=== PATIENT | female | born 1980 | race Caucasian/White ===

== ENCOUNTER 2024-04-13 18:19 | Emergency (ER) | payer BC, OTHER ==
[~2024-04-13] VITALS: Ht 154.9 cm; Wt 89.8 kg
[~2024-04-13 18:19] MED LIST: IBUP-44 PO
[2024-04-13 18:29] VITALS: BP 114/62; PULSE 103; RESP 20; TEMP 98.4; O2SAT 97
[2024-04-13 18:45] VITALS: TEMP 98.4
[2024-04-13 18:58] LABS: APPEARANCE,URINE CLEAR (CLEAR); BILIRUBIN,URINE NEGATIVE (NEGATIVE); BLOOD, URINE NEGATIVE (NEGATIVE); COLOR,URINE YELLOW (YELLOW); LEUKOCYTE ESTERASE ,URINE NEGATIVE (NEGATIVE); NITRITE, URINE NEGATIVE (NEGATIVE); PROTEIN,URINE NEGATIVE (NEGATIVE); UGLUCOSE NEGATIVE (NEGATIVE); UROBILINOGEN,URINE 0.2 EU/dL (0.2 - 1)
[2024-04-13] MEDS: KETOROLAC 30 MG/ML VIAL IVP ONE (18:59)
[2024-04-13] MEDS: ONDANSETRON 4 MG/2 ML VIAL IVP ONE (18:59)
[2024-04-13] MEDS: NACL 0.9% 1,000 ML IV SCH (19:00)
[2024-04-13 19:05] LABS: BASOPHILS # (AUTO) 0.1 K/uL (0.00-0.22); BASOPHILS % (AUTO) 0.5 % (0.0-2.0); EOSINOPHILS # (AUTO) 0.1 K/uL (0-0.4); EOSINOPHILS % (AUTO) 0.4 % (0.0-4.0); HEMATOCRIT 42.3 % (36-48); HEMOGLOBIN 14.2 g/dL (12.0-16.0); LYMPHOCYTES # (AUTO) 2.7 K/uL (2.5-16.5); LYMPHOCYTES % (AUTO) 17.1 % (20.5-51.1); MEAN CORPUSCULAR HEMOGLOBIN 29 pg (27-31); MEAN CORPUSCULAR HGB CONC 34 g/dL (33-37); MEAN CORPUSCULAR VOLUME 86.3 fL (80-94); MONOCYTES # (AUTO) 1.1 K/uL (0.8-1.0); MONOCYTES % (AUTO) 7.3 % (1.7-9.3); NEUTROPHILS # (AUTO) 11.6 K/uL (1.8-7.7); NEUTROPHILS % (AUTO) 74.7 % (42.2-75.2); PLATELET COUNT (AUTO) 247 K/uL (140-450); RED CELL DISTRIBUTION WIDTH 14.1 % (11.6-13.7); WHITE BLOOD COUNT (AUTO) 15.5 K/uL (4.8-10.8)
[2024-04-13 19:20] LABS: ANION GAP 9.4 (8-16); CALCIUM 8.8 mg/dL (8.5-10.1); CARBON DIOXIDE 29.3 mmol/L (21-32); CREATININE 0.9 mg/dL (0.6-1.3); POTASSIUM 3.7 mmol/L (3.5-5.1)
[2024-04-13 19:24] LABS: ALBUMIN 3.6 g/dL (3.4-5.0); BILIRUBIN,DIRECT 0.1 mg/dL (0.0-0.3); TOTAL BILIRUBIN 0.5 mg/dL (0.0-1.0); TOTAL PROTEIN, SERUM 8.1 g/dL (6.4-8.2)
[2024-04-13] MEDS ORDERED: MORPHINE SULFATE 4 MG/ML SYR IVP ONE (21:00)
[2024-04-13] MEDS ORDERED: PIPERACILLIN/TAZOBACTAM 3.375 GM in DEXTROSE 5% 50 ML IV ONE (21:00)
[2024-04-13] MEDS ORDERED: METR-435 PO (21:24)
[2024-04-13] MEDS ORDERED: ACET-8905 PO (21:24)
[2024-04-13] MEDS ORDERED: IBUP-2213 PO (21:24)
[2024-04-13] MEDS ORDERED: ONDA8TAB87 PO (21:24)
[2024-04-13] MEDS ORDERED: CIPR500T4 PO (21:24)
[2024-04-13 21:55] VITALS: BP 114/69; PULSE 83; RESP 16; O2SAT 95
== END 2024-04-13 21:55 | disposition home or self-care (01) ==
LOC: MED 18:19
DX: K57.92 Diverticulitis of intestine, part unspecified, without perforation or abscess without bleeding (principal); R03.0 Elevated blood-pressure reading, without diagnosis of hypertension; Z79.899 Other long term (current) drug therapy
CPT/HCPCS: 36415; 74176; 80048; 80076; 81003; 81025; 83690; 85025; 96361; 96374; 96375; 99285; J1885; J2405